=== PATIENT | female | born 1970 | race African-American/Black ===

== ENCOUNTER 2017-07-12 04:39 | Emergency (ER) | payer MEDICAID ==
[~2017-07-12] VITALS: Ht 162.6 cm; Wt 72.6 kg
[~2017-07-12 04:39] MED LIST: ALPR1TAB2 PO; CODE1CAP35 PO; HYDR-3976 PO; IBUP-1481 PO
--- NOTE | 2017-07-12 04:50 | NUR ---
46 YO FEMALE BB RA FROM HOME C/O ANXIETY ATTACK. PT AMBULATED TO ER BED WITH STEADY GAIT, SKIN WARM AND DRY, RR EVEN AN DUNLABORED. PT GOWNED, PALCED ON PUBLIC HEALTH OFFICER. WILL CONTINUE TO MONITO R
[2017-07-12 05:31] LABS: BASOPHILS % (AUTO) 0.7 % (0.0-2.0); EOSINOPHILS # (AUTO) 0.1 /CMM (0.0-0.7); EOSINOPHILS % (AUTO) 1.1 % (0.0-6.0); HEMATOCRIT 39 % (33-45); HEMOGLOBIN 12.9 g/dL (11.5-14.8); LYMPHOCYTES % (AUTO) 32.2 % (20.0-44.0); MEAN CORPUSCULAR HEMOGLOBIN 28 PG (26.0-33.0); MEAN CORPUSCULAR HGB CONC 33 g/dl (31.0-36.0); MEAN CORPUSCULAR VOLUME 84 fL (82-100); MONOCYTES # (AUTO) 0.6 /CMM (0.1-1.30); MONOCYTES % (AUTO) 9.6 % (2.0-12.0); NEUTROPHILS # (AUTO) 3.6 /CMM (1.8-8.9); NEUTROPHILS % (AUTO) 56.4 % (43.0-81.0); PLATELET COUNT (AUTO) 435 /CMM (150-450); RDW COEFFICIENT OF VARIATION 14.2 (11.5-15.0); RED BLOOD CELL COUNT(AUTO) 4.68 MIL/uL (4.0-5.2); WHITE BLOOD COUNT (AUTO) 6.3 K/uL (4.3-11.0)
[2017-07-12 05:42] LABS: CALCIUM, SERUM 9.7 mg/dL (8.5-10.1); CARBON DIOXIDE 28 mmol/L (21-32); CHLORIDE 98 mmol/L (98-107); GLUCOSE 127 mg/dL (74-106); SODIUM SERUM 136 mmol/L (136-145); UREA NITROGEN, BLOOD 5 mg/dL (7-18)
[2017-07-12 05:49] LABS: ALANINE AMINOTRANSFERASE 22 U/L (12-78); ALBUMIN 4.2 g/dL (3.4-5.0); ALCOHOL, BLOOD < 3 mg/dL (0-0); ALKALINE PHOSPHATASE 61 U/L (46-116); ASPARTATE AMINOTRANSFERASE 28 U/L (15-37); BILIRUBIN,TOTAL 0.4 mg/dL (0.2-1.0); TOTAL PROTEIN, SERUM 8.2 g/dL (6.4-8.2)
[2017-07-12 05:59] LABS: THYROID STIMULATING HORMONE 1.094 uIU/mL (0.358-3.74)
[2017-07-12 07:20] VITALS: BP 140/76
--- NOTE | 2017-07-12 07:21 | NUR ---
Patient discharged to home in stable condition. Written and verbal after care instructions given. Patient verbalizes understanding of instruction.IV removed. Catheter intact and site benign. Pressure and 4x4 applied to site. No bleeding noted. PT ambulatory with a steady gait VITAL SIGNS WITHIN NORMAL LIMITS.
== END 2017-07-12 07:21 | disposition home or self-care (01) ==
LOC: ER 04:41
DX: F41.9 Anxiety disorder, unspecified (principal); R82.99 Other abnormal findings in urine; F17.200 Nicotine dependence, unspecified, uncomplicated; I10 Essential (primary) hypertension; G43.909 Migraine, unspecified, not intractable, without status migrainosus; Z88.6 Allergy status to analgesic agent
CPT/HCPCS: 36415; 71010; 80048; 80076; 80305; 84443; 84484; 84703; 85025; 93005; 96361; 96374; 96375; 99285; A4606; G0480; J2060; J2270 ×2; J2405; J7030; Z7610

== ENCOUNTER 2018-01-04 11:27 | Emergency (ER) | payer MEDICAID, OTHER ==
[~2018-01-04] VITALS: Ht 162.6 cm; Wt 74.8 kg
[~2018-01-04 11:27] MED LIST changes: -IBUP-1481 PO; +IBUP-1953 PO
[2018-01-04 11:37] VITALS: BP 135/77
[2018-01-04] MEDS ORDERED: KETOROLAC TROMETHAMINE 15 MG/ML VIAL ONE (12:51)
[2018-01-04] MEDS ORDERED: KETOROLAC TROMETHAMINE INJ 30 MG/ML VIAL IM ONE (13:00)
== END 2018-01-04 13:00 | disposition home or self-care (01) ==
LOC: ER 11:28
DX: B34.9 Viral infection, unspecified (principal); F41.9 Anxiety disorder, unspecified; G43.909 Migraine, unspecified, not intractable, without status migrainosus; I10 Essential (primary) hypertension; F10.10 Alcohol abuse, uncomplicated; F17.200 Nicotine dependence, unspecified, uncomplicated; Z88.5 Allergy status to narcotic agent
CPT/HCPCS: 71045-TC; 84703-TC; A4606; J1885; Z7610

== ENCOUNTER 2018-01-10 15:07 | Emergency (ER) | payer MEDICAID, OTHER ==
[~2018-01-10] VITALS: Ht 162.6 cm; Wt 74.8 kg
--- NOTE | 2018-01-10 15:07 | NUR ---
COUNG AND CONGESTION, COLD, BODYACHES, HEADACHE > 1 WK. NAD NOTED. PT AAO X4, AMB WITH STEADY GAIT. RR EVEN AND UNLABORED. PENDING MD CARLOS.
[2018-01-10] MEDS ORDERED: IBUPROFEN 600 MG TABLET PO ONE ×2 (16:00→16:02)
[2018-01-10] MEDS ORDERED: ONDANSETRON 4 MG TAB.RAPDIS SL ONE (16:00)
[2018-01-10] MEDS ORDERED: oxyCODONE/APAP (5/325 MG) 1 UDTAB TABLET PO ONE (16:00)
[2018-01-10] MEDS ORDERED: ALBUTEROL FS 2.5 MG/3 ML VIAL.NEB NEB ONE (16:00)
[2018-01-10] MEDS ORDERED: predniSONE 20 MG TABLET PO ONE (16:00)
--- NOTE | 2018-01-10 16:01 | NUR ---
CALLED RT FOR A BREATHING TREATMENT
[2018-01-10] MEDS ORDERED: oxyCODONE/APAP (5/325 MG) 1 UDTAB TABLET ONE (16:02)
[2018-01-10] MEDS ORDERED: ONDANSETRON 4 MG TAB.RAPDIS ONE (16:02)
[2018-01-10] MEDS ORDERED: ALBUTEROL FS 2.5 MG/3 ML VIAL.NEB ONE (16:04)
[2018-01-10] MEDS ORDERED: predniSONE 20 MG TABLET ONE (16:11)
[2018-01-10 16:54] LABS: APPEARANCE,URINE Clear (CLEAR); BILIRUBIN,URINE Negative (NEGATIVE); BLOOD, URINE Negative Ery/uL (NEGATIVE); COLOR,URINE Yellow (YELLOW); KETONES,URINE Negative (NEGATIVE); LEUKOCYTE ESTERASE ,URINE Negative (NEGATIVE); NITRITE, URINE Negative (NEGATIVE); PROTEIN,URINE Negative (NEGATIVE); UGLUCOSE Negative (NEGATIVE); UROBILINOGEN,URINE 0.2 EU/dL (0.2)
[2018-01-10 17:11] VITALS: BP 125/79
[2018-01-10] MEDS ORDERED: KETOROLAC TROMETHAMINE INJ 30 MG/ML VIAL ONE (17:27)
[2018-01-10] MEDS ORDERED: INSULIN REGULAR, HUMAN 100 UNIT/ML 10 ML VIAL SQ ONE (17:30)
[2018-01-10] MEDS ORDERED: KETOROLAC TROMETHAMINE INJ 30 MG/ML VIAL IM ONE (17:30)
--- NOTE | 2018-01-10 17:37 | NUR ---
Patient discharged to home in stable condition. Written and verbal after care instructions given. Patient verbalizes understanding of instruction. ambulatory with a steady gait. nad noted. pt aao x4, amb with steady gait. prescriptions given . no fruther complaints.
== END 2018-01-10 17:36 | disposition home or self-care (01) ==
LOC: ER 15:14
DX: J03.90 Acute tonsillitis, unspecified (principal); J40 Bronchitis, not specified as acute or chronic; R51 Headache; F41.9 Anxiety disorder, unspecified; I10 Essential (primary) hypertension; F10.10 Alcohol abuse, uncomplicated; F17.200 Nicotine dependence, unspecified, uncomplicated; F12.10 Cannabis abuse, uncomplicated
CPT/HCPCS: 71045; 81001; 84703; 96372; 99285; 99406; A4606; J1885; J7512; Q0162; Z7610; 81000-TC

== ENCOUNTER 2018-05-22 10:00 | Emergency (ER) | payer MEDICAID ==
[~2018-05-22] VITALS: Ht 162.6 cm; Wt 77.1 kg
--- NOTE | 2018-05-22 10:16 | NUR ---
DR MONSON AT BEDSIDE FOR EVAL.
--- NOTE | 2018-05-22 10:26 | NUR ---
RADIOLOGY AT BEDSIDE FOR LUMBAR SPINE XRAY.
[2018-05-22] MEDS ORDERED: ONDANSETRON 4 MG TAB.RAPDIS SL ONE (10:30)
[2018-05-22] MEDS ORDERED: IBUPROFEN 600 MG TABLET PO ONE (10:31)
[2018-05-22] MEDS ORDERED: ONDANSETRON 4 MG TAB.RAPDIS ONE (10:31)
[2018-05-22] MEDS: IBUPROFEN 600 MG TABLET PO ONE ×2 (10:32→10:35)
--- NOTE | 2018-05-22 10:34 | NUR ---
PT TO RADIOLOGY FOR HEAD CT SCAN VIA [facility].
--- NOTE | 2018-05-22 11:09 | NUR ---
Patient discharged to home in stable condition. Written and verbal after care instructions given. Patient verbalizes understanding of instruction.
[2018-05-22 11:10] VITALS: BP 125/75
== END 2018-05-22 11:12 | disposition home or self-care (01) ==
LOC: ER 10:01
DX: S23.3XXA Sprain of ligaments of thoracic spine, initial encounter (principal); S33.5XXA Sprain of ligaments of lumbar spine, initial encounter; S09.8XXA Other specified injuries of head, initial encounter; I10 Essential (primary) hypertension; F41.9 Anxiety disorder, unspecified; G43.909 Migraine, unspecified, not intractable, without status migrainosus; Z88.6 Allergy status to analgesic agent; W01.198A Fall on same level from slipping, tripping and stumbling with subsequent striking against other object, initial encounter; Y93.89 Activity, other specified; Y92.89 Other specified places as the place of occurrence of the external cause; Y99.8 Other external cause status
CPT/HCPCS: 70450; 72074; 72110; 99284; A4606; Q0162; Z7610

== ENCOUNTER 2018-07-12 09:59 | Emergency (ER) | payer MEDICAID ==
[~2018-07-12] VITALS: Ht 162.6 cm; Wt 87.5 kg
[2018-07-12 10:05] VITALS: BP 122/70
== END 2018-07-12 10:27 | disposition home or self-care (01) ==
LOC: ER 10:01
DX: T88.1XXA Other complications following immunization, not elsewhere classified, initial encounter (principal); I10 Essential (primary) hypertension; F41.9 Anxiety disorder, unspecified; G43.909 Migraine, unspecified, not intractable, without status migrainosus; F41.0 Panic disorder [episodic paroxysmal anxiety]; F10.10 Alcohol abuse, uncomplicated; Y90.9 Presence of alcohol in blood, level not specified; Z88.5 Allergy status to narcotic agent
CPT/HCPCS: 99281; A4606; Z7610; Z7502

== ENCOUNTER 2018-09-21 22:15 | Emergency (ER) | payer MEDICAID ==
[~2018-09-21] VITALS: Ht 162.6 cm; Wt 87.5 kg
[2018-09-21 22:27] VITALS: BP 132/85
== END 2018-09-21 23:30 | disposition home or self-care (01) ==
LOC: ER 22:21
DX: Z47.89 Encounter for other orthopedic aftercare (principal); I10 Essential (primary) hypertension; F41.9 Anxiety disorder, unspecified; G43.909 Migraine, unspecified, not intractable, without status migrainosus; F41.0 Panic disorder [episodic paroxysmal anxiety]; F10.10 Alcohol abuse, uncomplicated; Y90.9 Presence of alcohol in blood, level not specified
CPT/HCPCS: A4606; Z7610

== ENCOUNTER 2019-01-30 11:33 | Emergency (ER) | payer MEDICAID ==
[~2019-01-30] VITALS: Ht 162.6 cm; Wt 77.1 kg
--- NOTE | 2019-01-30 11:38 | NUR ---
PT BIB SELF C/O L ANKLE PAIN AND SWELLING X 3 DAYS. ANKLE SX (09/30/18), PT IS AAOX4, NOT IN RESPIRATORY DISTRESS, KEPT RESTED AND COMFORTABLE.
--- NOTE | 2019-01-30 11:48 | NUR ---
SEEN AND EXAMINED BY LANA RABAGO NP.
--- NOTE | 2019-01-30 11:50 | NUR ---
URINE SPECIMEN COLLECTED AND SENT TO LAB.
[2019-01-30] MEDS ORDERED: HYDROCODONE/APAP 5/325MG 1 EACH TABLET ONE (11:58)
[2019-01-30] MEDS ORDERED: ONDANSETRON 4 MG TAB.RAPDIS ONE (11:59)
[2019-01-30] MEDS ORDERED: HYDROCODONE/APAP 10/325MG 1 EA TABLET PO ONE (12:00)
[2019-01-30] MEDS ORDERED: KETOROLAC TROMETHAMINE INJ 30 MG/ML VIAL IV ONE (12:00)
[2019-01-30] MEDS ORDERED: ONDANSETRON 4 MG TAB.RAPDIS SL ONE (12:00)
--- NOTE | 2019-01-30 12:00 | NUR ---
ER PHLEB AT BEDSIDE FOR BLOOD DRAW.
[2019-01-30 12:07] LABS: BASOPHILS % (AUTO) 0.7 % (0.0-2.0); EOSINOPHILS % (AUTO) 1.7 % (0.0-6.0); HEMATOCRIT 36 % (33-45); HEMOGLOBIN 11.8 g/dL (11.5-14.8); LYMPHOCYTES # (AUTO) 2.4 /CMM (0.8-4.8); LYMPHOCYTES % (AUTO) 42.1 % (20.0-44.0); MEAN CORPUSCULAR HGB CONC 33 g/dl (31.0-36.0); MEAN CORPUSCULAR VOLUME 83 fL (82-100); MONOCYTES # (AUTO) 0.6 /CMM (0.1-1.30); MONOCYTES % (AUTO) 10.8 % (2.0-12.0); NEUTROPHILS # (AUTO) 2.5 /CMM (1.8-8.9); NEUTROPHILS % (AUTO) 44.7 % (43.0-81.0); PLATELET COUNT (AUTO) 316 /CMM (150-450); RED BLOOD CELL COUNT(AUTO) 4.36 MIL/uL (4.0-5.2); WHITE BLOOD COUNT (AUTO) 5.6 K/uL (4.3-11.0)
[2019-01-30 12:13] LABS: CALCIUM, SERUM 8.8 mg/dL (8.5-10.1); CREATININE 0.7 mg/dL (0.6-1.3); POTASSIUM 3.4 mmol/L (3.5-5.1)
--- NOTE | 2019-01-30 12:16 | NUR ---
TECH AT BEDSIDE FOR US.
[2019-01-30] MEDS ORDERED: HYDROCODONE/APAP 10/325MG 1 EA TABLET ONE (12:18)
[2019-01-30] MEDS ORDERED: KETOROLAC TROMETHAMINE INJ 30 MG/ML VIAL ONE (12:19)
--- NOTE | 2019-01-30 12:59 | NUR ---
Patient discharged to home in stable condition. Written and verbal after care instructions given. Patient verbalizes understanding of instruction.
[2019-01-30 13:01] VITALS: BP 141/87
== END 2019-01-30 13:02 | disposition home or self-care (01) ==
LOC: ER 11:37
DX: M25.572 Pain in left ankle and joints of left foot (principal); I10 Essential (primary) hypertension; F41.9 Anxiety disorder, unspecified; G43.909 Migraine, unspecified, not intractable, without status migrainosus; Z96.662 Presence of left artificial ankle joint; Z98.890 Other specified postprocedural states; Z88.6 Allergy status to analgesic agent; Z79.899 Other long term (current) drug therapy
CPT/HCPCS: 36415; 73610; 80048; 84703; 85025; 85610; 93971; 96374; 99284; J1885; Q0162

== ENCOUNTER 2019-06-21 20:02 | Emergency (ER) | payer MEDICAID ==
[~2019-06-21] VITALS: Ht 162.6 cm; Wt 85.3 kg
[2019-06-21] MEDS ORDERED: IPRATROPIUM NEB FS 0.5 MG/2.5 ML AMPUL.NEB ONE (20:58)
[2019-06-21] MEDS ORDERED: ALBUTEROL FS 2.5 MG/3 ML VIAL.NEB ONE ×2 (20:58→22:25)
[2019-06-21] MEDS ORDERED: IPRATROPIUM NEB FS 0.5 MG/2.5 ML AMPUL.NEB NEB ONE (21:00)
[2019-06-21] MEDS ORDERED: ACETAMINOPHEN 325 MG TABLET PO ONE (21:00)
[2019-06-21] MEDS ORDERED: ALBUTEROL FS 2.5 MG/3 ML VIAL.NEB NEB ONE ×2 (21:00→22:00)
[2019-06-21] MEDS ORDERED: IV NS 0.9% 1,000 ML BAG IV ONE (21:00)
[2019-06-21] MEDS ORDERED: methylPREDNISolone SOD SUCC 125 MG/2ML VIAL IV ONE (21:00)
[2019-06-21] MEDS ORDERED: ONDANSETRON HCL/PF 4 MG/2 ML VIAL IVP ONE (21:00)
[2019-06-21] MEDS ORDERED: ONDANSETRON HCL/PF 4 MG/2 ML VIAL ONE (21:03)
[2019-06-21] MEDS ORDERED: ACETAMINOPHEN ES 500 MG TABLET ONE (21:03)
[2019-06-21] MEDS ORDERED: methylPREDNISolone SOD SUCC 125 MG/2ML VIAL ONE (21:03)
--- NOTE | 2019-06-21 21:33 | NUR ---
TERE FROM HOME. TO ER BED 10. AAOX4. SOB AND COUGHING. AMBULATORY. C/O FLU SYMPTOMS X 4 DAYS. PT REPORTS HEADACHE AND DIZZYNESS. COUGING, NOTED NON PRODUCTIVE. DIMINISHED LUNG SOUND. NAUSEA. PT REPORT NUMBNESS ON HANDS, PER PT HER POTASSIUM IS LOW AND TAKING WATER PILLS. WAS AT BEDSIDE FOR EVAL. ORDERS RECEIVED NOTED AND CARRIED OUT. IV ELEANOR OBTAINED ON L HAND 22G.
--- NOTE | 2019-06-21 21:41 | NUR ---
URINE COLLECTED AND SENT TO LAB
[2019-06-21 21:48] LABS: BASOPHILS # (AUTO) 0.1 /CMM (0.0-0.2); BASOPHILS % (AUTO) 0.9 % (0.0-2.0); EOSINOPHILS % (AUTO) 0.6 % (0.0-6.0); HEMATOCRIT 35 % (33-45); HEMOGLOBIN 11.7 g/dL (11.5-14.8); LYMPHOCYTES # (AUTO) 2.2 /CMM (0.8-4.8); LYMPHOCYTES % (AUTO) 21.3 % (20.0-44.0); MEAN CORPUSCULAR HGB CONC 33 g/dl (31.0-36.0); MEAN CORPUSCULAR VOLUME 83 fL (82-100); MONOCYTES # (AUTO) 1.1 /CMM (0.1-1.30); NEUTROPHILS # (AUTO) 6.7 /CMM (1.8-8.9); NEUTROPHILS % (AUTO) 66.2 % (43.0-81.0); PLATELET COUNT (AUTO) 281 /CMM (150-450); WHITE BLOOD COUNT (AUTO) 10.1 K/uL (4.3-11.0)
[2019-06-21] MEDS ORDERED: CEFTRIAXONE 1GM BAG (ER ONLY) 1 GM/50 ML PIGGYBACK IV ONE (22:00)
[2019-06-21 22:03] LABS: ALBUMIN 3.4 g/dL (3.4-5.0); BILIRUBIN,DIRECT 0.1 mg/dL (0.0-0.2); BILIRUBIN,TOTAL 0.2 mg/dL (0.2-1.0); CREATININE 1.2 mg/dL (0.6-1.3); TOTAL PROTEIN, SERUM 7.5 g/dL (6.4-8.2)
[2019-06-21 22:05] LABS: POTASSIUM 2.5 mmol/L (3.5-5.1)
--- NOTE | 2019-06-21 22:05 | NUR ---
PT POTASSIUM 2.5 CRITICAL LAB. ER AWARE
[2019-06-21] MEDS ORDERED: CEFTRIAXONE 1GM BAG (ER ONLY) 50 ML IV ONE (22:07)
[2019-06-21] MEDS ORDERED: POTASSIUM CHLORIDE 20 MEQ TAB.PRT.SR PO ONE ×2 (22:22→22:30)
--- NOTE | 2019-06-21 23:09 | NUR ---
Patient discharged to home in stable condition. Written and verbal after care instructions given. Patient verbalizes understanding of instruction.IV removed. Catheter intact and site benign. Pressure and 4x4 applied to site. No bleeding noted. Pt ambulatory with a steady gait
[2019-06-21 23:10] VITALS: BP 125/78
== END 2019-06-21 23:11 | disposition home or self-care (01) ==
LOC: ER 20:04
DX: J18.1 Lobar pneumonia, unspecified organism (principal); J98.01 Acute bronchospasm; E66.9 Obesity, unspecified; E87.6 Hypokalemia; R06.00 Dyspnea, unspecified; F41.9 Anxiety disorder, unspecified; R11.10 Vomiting, unspecified; R42 Dizziness and giddiness; I10 Essential (primary) hypertension; G43.909 Migraine, unspecified, not intractable, without status migrainosus; F10.10 Alcohol abuse, uncomplicated; F17.200 Nicotine dependence, unspecified, uncomplicated; Y90.9 Presence of alcohol in blood, level not specified; Z68.34 Body mass index [BMI] 34.0-34.9, adult; Z98.890 Other specified postprocedural states; Z88.5 Allergy status to narcotic agent
CPT/HCPCS: 36415; 71045; 80048; 80076; 85025; 93005; 94640 ×3; 96361; 96365; 96375; 99285; J0696; J2405; J2930; J7030

== ENCOUNTER 2021-05-05 14:40 | Emergency (ER) | payer MEDICAID ==
[~2021-05-05] VITALS: Ht 165.1 cm; Wt 94.3 kg
--- NOTE | 2021-05-05 15:13 | NUR ---
TO ER BED 1, C/O LOWER EXTREMITY INJURY, SALINE LOCK ESTABLISHED, BLOOD DRAWN, AT BEDSIDE
[2021-05-05 15:24] LABS: BASOPHILS % (AUTO) 0.6 % (0.0-2.0); EOSINOPHILS % (AUTO) 1.3 % (0.0-6.0); HEMATOCRIT 38 % (33-45); HEMOGLOBIN 12.3 g/dL (11.5-14.8); LYMPHOCYTES # (AUTO) 1.8 K/uL (0.8-4.8); LYMPHOCYTES % (AUTO) 22.1 % (20.0-44.0); MEAN CORPUSCULAR HGB CONC 33 g/dl (31.0-36.0); MEAN CORPUSCULAR VOLUME 82 fL (82-100); MONOCYTES # (AUTO) 0.5 K/uL (0.1-1.30); NEUTROPHILS # (AUTO) 5.7 K/uL (1.8-8.9); PLATELET COUNT (AUTO) 389 K/uL (150-450); RED BLOOD CELL COUNT(AUTO) 4.61 MIL/uL (4.0-5.2); WHITE BLOOD COUNT (AUTO) 8.2 K/uL (4.3-11.0)
--- NOTE | 2021-05-05 15:29 | NUR ---
XRAY AT BEDSIDE
[2021-05-05 15:34] LABS: CALCIUM, SERUM 9.4 mg/dL (8.5-10.1); CREATININE 0.8 mg/dL (0.6-1.3); POTASSIUM 3.8 mmol/L (3.5-5.1)
[2021-05-05] MEDS ORDERED: LOSA1TAB39 PO (16:07)
--- NOTE | 2021-05-05 17:00 | NUR ---
FAMYRIAM BEDOYA TO FRIEDA KIRKPATRICK @ [facility] [phone] TEL [phone]
[2021-05-05] MEDS ORDERED: ONDANSETRON HCL/PF - ER 4 MG/2 ML VIAL IV ONE (17:30)
[2021-05-05] MEDS ORDERED: IV NS 0.9% 1,000 ML IV ONE (17:30)
[2021-05-05] MEDS ORDERED: MORPHINE SULFATE INJ 2 MG/ML DISP.SYRIN IV ONE ×2 (17:30→19:00)
[2021-05-05] MEDS ORDERED: ONDANSETRON HCL/PF 4 MG/2 ML VIAL ONE (17:38)
[2021-05-05] MEDS ORDERED: MORPHINE SULFATE INJ 2 MG/ML DISP.SYRIN ONE ×2 (17:39→18:43)
--- NOTE | 2021-05-05 17:40 | NUR ---
DR. RIVERA SPEAKING WITH DR. HANCOCK.
--- NOTE | 2021-05-05 18:21 | NUR ---
ASKED IF DR HANCOCK CAN TALK TO HER ABOUT WHAT DR RIVERA SAID TO HIM, SHE SHOOK HER HEAD AND INSTEAD I TOLD HER THAT DR RIVERA TOLD DR HANCOCK THAT SHE CAN BE TRANSFERRED TO THE [facility] ASSIGNED TO HER AND THAT SHE IS STABLE FOR TRANSFER PER DR RIVERA. PATIENT AGREED
--- NOTE | 2021-05-05 18:23 | NUR ---
CALLED FRIEDA KIRKPATRICK [phone] LEFT [facility] TO CALL US BACK.
--- NOTE | 2021-05-05 18:27 | NUR ---
FRIEDA CALLED BACK WITH INFO: PT ACCEPTED TO [facility] ROOM 1000-A PLEASE CALL [phone] TO GIVE REPORT. [facility] WITH ETA OF 1900
[2021-05-05 18:55] VITALS: BP 116/62
--- NOTE | 2021-05-05 19:16 | NUR ---
GAVE REPORT TO TREASURE [facility]
== END 2021-05-05 19:29 | disposition short-term general hospital (02) ==
LOC: ER 14:44
DX: S82.841A Displaced bimalleolar fracture of right lower leg, initial encounter for closed fracture (principal); W18.30XA Fall on same level, unspecified, initial encounter; Y93.21 Activity, ice skating; Y92.89 Other specified places as the place of occurrence of the external cause; Z20.822 Contact with and (suspected) exposure to COVID-19; I10 Essential (primary) hypertension; F41.9 Anxiety disorder, unspecified; Z88.6 Allergy status to analgesic agent; Z79.899 Other long term (current) drug therapy
CPT/HCPCS: 36415; 71045; 73610; 80048; 85025; 85730; 87081; 87426; 93005; 93971; 96361; 96374; 96375; 96376; 99285; C9803; J2270 ×2; J2405 ×2

== ENCOUNTER 2022-10-25 08:40 | Emergency (ER) | payer MEDICAID ==
[~2022-10-25] VITALS: Ht 162.6 cm; Wt 82.6 kg
[~2022-10-25 08:40] MED LIST changes: -CODE1CAP35 PO; -HYDR-3976 PO; -IBUP-1953 PO; +LOSA1TAB39 PO
--- NOTE | 2022-10-25 08:50 | NUR ---
PT WALKED INTO ER C/O RIGHT KNEE PAIN S/P SLIP AND FALL YESTERDAY. PT DENIES HITTING HEAD OR LOC. NO OBVIOUS DEFORMITY NOTED. GOOD CMS, LIMITED RANGE OF MOTION. PT STATES 5/10 PAIN WHEN WALKING. PLACED IN BED. AWAITING MD ORDERS
--- NOTE | 2022-10-25 08:51 | NUR ---
/PA AT BEDSIDE FOR EVAL
--- NOTE | 2022-10-25 09:15 | NUR ---
[employer] OFFICER AT BEDSIDE FOR XRAY
[2022-10-25] MEDS ORDERED: HYDR-4275 PO (09:27)
--- NOTE | 2022-10-25 09:31 | NUR ---
TECH AT BEDSIDE FOR ANKLE BOOT APPLICATION
[2022-10-25] MEDS ORDERED: BENZOIN COMPOUND TINCT 60 ML BOTTLE ONE (09:40)
--- NOTE | 2022-10-25 10:12 | NUR ---
Patient discharged to home in stable condition. Written and verbal after care instructions given. Patient verbalizes understanding of instruction.
[2022-10-25 10:13] VITALS: BP 124/80
== END 2022-10-25 10:13 | disposition home or self-care (01) ==
LOC: ER 08:47
DX: S61.012A Laceration without foreign body of left thumb without damage to nail, initial encounter (principal); S93.401A Sprain of unspecified ligament of right ankle, initial encounter; I10 Essential (primary) hypertension; F41.9 Anxiety disorder, unspecified; F17.200 Nicotine dependence, unspecified, uncomplicated; Z79.899 Other long term (current) drug therapy; Z98.890 Other specified postprocedural states; Z88.8 Allergy status to other drugs, medicaments and biological substances; W26.0XXA Contact with knife, initial encounter; Y93.G3 Activity, cooking and baking; Y92.89 Other specified places as the place of occurrence of the external cause; Y99.8 Other external cause status
CPT/HCPCS: 73610-TC

== ENCOUNTER → 2023-01-19 | Emergency (ER) | payer BC, OTHER ==
[~2023-01-19] VITALS: Ht 162.6 cm; Wt 83.9 kg
[~2023-01-19] MED LIST changes: +ACETAMINOPHEN 325 MG TABLET ONE; +HYDR-4275 PO; +KETOROLAC TROMETHAMINE 15 MG/ML VIAL ONE; +LORAZEPAM 1 MG TABLET ONE
[2023-01-19] MEDS: LORAZEPAM 1 MG TABLET PO ONE (08:01)
[2023-01-19] MEDS: ACETAMINOPHEN 325 MG TABLET PO ONE (08:30)
[2023-01-19] MEDS: KETOROLAC TROMETHAMINE INJ 30 MG/ML VIAL IM ONE (08:30)
--- NOTE | 2023-01-19 08:36 | NUR ---
medicated as ordered. tolerated well.
[2023-01-19 08:47] VITALS: BP 148/88
--- NOTE | 2023-01-19 08:47 | NUR ---
Patient discharged to home in stable condition. Written and verbal after care instructions given. Patient verbalizes understanding of instruction.
== END | disposition home or self-care (01) ==
LOC: ER 06:45
DX: F41.9 Anxiety disorder, unspecified (principal); F43.81 Prolonged grief disorder; I10 Essential (primary) hypertension; G43.909 Migraine, unspecified, not intractable, without status migrainosus; F17.200 Nicotine dependence, unspecified, uncomplicated; Z88.8 Allergy status to other drugs, medicaments and biological substances
CPT/HCPCS: 99283; 96372; J1885

== ENCOUNTER 2023-03-08 12:38 | Emergency (ER) | payer BC, OTHER ==
[~2023-03-08] VITALS: Ht 162.6 cm; Wt 83.9 kg
[~2023-03-08 12:38] MED LIST changes: -ACETAMINOPHEN 325 MG TABLET ONE; -KETOROLAC TROMETHAMINE 15 MG/ML VIAL ONE; -LORAZEPAM 1 MG TABLET ONE
[2023-03-08 12:43] VITALS: BP 139/118
--- NOTE | 2023-03-08 12:43 | NUR ---
BIBS C/O HAVING PANIC ATTACHED, HAS HX OF ANEXIETY, EXPERIENCING HEADACHES
--- NOTE | 2023-03-08 12:43 | NUR ---
BIBS C/O HAVING PANICK ATTACHED, HAS HX OF ANEXIETY, EXPERIENCING HEADACHES
[2023-03-08] MEDS ORDERED: LORAZEPAM 1 MG TABLET PO ONE (14:00)
[2023-03-08] MEDS ORDERED: LORAZEPAM 1 MG TABLET ONE (14:04)
--- NOTE | 2023-03-08 14:33 | NUR ---
Patient discharged to home in stable condition. Written and verbal after care instructions given. Patient verbalizes understanding of instruction.
== END 2023-03-08 14:33 | disposition home or self-care (01) ==
LOC: ER 12:39
DX: F41.9 Anxiety disorder, unspecified (principal); G43.909 Migraine, unspecified, not intractable, without status migrainosus; I10 Essential (primary) hypertension; F17.200 Nicotine dependence, unspecified, uncomplicated; Z79.899 Other long term (current) drug therapy; Z98.890 Other specified postprocedural states; Z91.040 Latex allergy status; Z88.1 Allergy status to other antibiotic agents; Z88.5 Allergy status to narcotic agent

== ENCOUNTER → 2023-04-14 | Emergency (ER) | payer BC, OTHER ==
--- NOTE | 2023-04-14 13:07 | NUR ---
Pt called. NOT answering Sound Recordist Rosaline states "there she is in her car" Pt kunal
== END | disposition left against medical advice (07) ==
LOC: ER 18:49
DX: Z53.21 Procedure and treatment not carried out due to patient leaving prior to being seen by health care provider (principal)

== ENCOUNTER 2023-05-08 12:21 | Emergency (ER) | payer BC, OTHER ==
[~2023-05-08] VITALS: Ht 162.6 cm; Wt 81.6 kg
[2023-05-08 12:24] VITALS: BP 134/86; TEMP 98.2
--- NOTE | 2023-05-08 12:24 | NUR ---
BIBS FOR C/O RASH ON L SIDE OF THE NECK X3 WEEKS, WANTING RX. VITALS ARE WITHIN NORMAL LIMITS.
[2023-05-08] MEDS ORDERED: LORAZEPAM 1 MG TABLET ONE (12:47)
[2023-05-08] MEDS ORDERED: LORAZEPAM 1 MG TABLET PO ONE (13:00)
--- NOTE | 2023-05-08 13:17 | NUR ---
Patient discharged to home in stable condition. Written and verbal after care instructions given. Patient verbalizes understanding of instruction.
[2023-05-08 13:18] VITALS: O2SAT 97
== END 2023-05-08 13:18 | disposition home or self-care (01) ==
LOC: ER 12:28
DX: F41.9 Anxiety disorder, unspecified (principal); I10 Essential (primary) hypertension; G43.909 Migraine, unspecified, not intractable, without status migrainosus; Z88.8 Allergy status to other drugs, medicaments and biological substances

== ENCOUNTER 2023-06-29 06:00 | Emergency (ER) | payer BC, OTHER ==
[~2023-06-29] VITALS: Ht 162.6 cm; Wt 81.6 kg
[2023-06-29 06:19] VITALS: BP 118/77; TEMP 98.6; O2SAT 98
[2023-06-29] MEDS ORDERED: DIPH28.33 TP (06:53)
[2023-06-29] MEDS ORDERED: DIPH-530 PO (06:53)
[2023-06-29] MEDS ORDERED: PRED50TA PO (06:53)
[2023-06-29] MEDS ORDERED: diphenhydrAMINE HCL 25 MG CAPSULE ONE (07:13)
[2023-06-29] MEDS ORDERED: diphenhydrAMINE HCL ELIX 25 MG/10 ML UDC PO ONE (07:30)
== END 2023-06-29 07:19 | disposition home or self-care (01) ==
LOC: ER 06:00
DX: S80.862A Insect bite (nonvenomous), left lower leg, initial encounter (principal); S80.861A Insect bite (nonvenomous), right lower leg, initial encounter; S40.862A Insect bite (nonvenomous) of left upper arm, initial encounter; S40.861A Insect bite (nonvenomous) of right upper arm, initial encounter; G43.909 Migraine, unspecified, not intractable, without status migrainosus; I10 Essential (primary) hypertension; F41.9 Anxiety disorder, unspecified; Z88.6 Allergy status to analgesic agent; Z88.8 Allergy status to other drugs, medicaments and biological substances; F17.200 Nicotine dependence, unspecified, uncomplicated; W57.XXXA Bitten or stung by nonvenomous insect and other nonvenomous arthropods, initial encounter; Y93.89 Activity, other specified; Y92.89 Other specified places as the place of occurrence of the external cause; Y99.8 Other external cause status
CPT/HCPCS: 99283; Q0163

== ENCOUNTER 2023-07-06 10:38 | Emergency (ER) | payer BC, MEDICAID ==
[~2023-07-06] VITALS: Ht 162.6 cm; Wt 535.2 kg
[~2023-07-06 10:38] MED LIST changes: +DIPH-530 PO; +DIPH28.33 TP; +PRED50TA PO
[2023-07-06 10:53] VITALS: BP 131/95; TEMP 98; O2SAT 98
[2023-07-06 11:54] LABS: BASOPHILS # (AUTO) 0.1 K/uL (0.0-0.2); BASOPHILS % (AUTO) 0.6 % (0.0-2.0); EOSINOPHILS # (AUTO) 0.2 K/uL (0.0-0.7); HEMATOCRIT 38 % (33-45); HEMOGLOBIN 12.5 g/dL (11.5-14.8); LYMPHOCYTES # (AUTO) 3.2 K/uL (0.8-4.8); LYMPHOCYTES % (AUTO) 40.2 % (20.0-44.0); MEAN CORPUSCULAR HEMOGLOBIN 28 PG (26.0-33.0); MEAN CORPUSCULAR HGB CONC 33 g/dl (31.0-36.0); MEAN CORPUSCULAR VOLUME 84 fL (82-100); MONOCYTES # (AUTO) 0.8 K/uL (0.1-1.30); MONOCYTES % (AUTO) 9.6 % (2.0-12.0); NEUTROPHILS # (AUTO) 3.7 K/uL (1.8-8.9); NEUTROPHILS % (AUTO) 46.6 % (43.0-81.0); PLATELET COUNT (AUTO) 389 K/uL (150-450); RED BLOOD CELL COUNT(AUTO) 4.49 MIL/uL (4.0-5.2); RED CELL DISTRIBUTION WIDTH 15.4 % (11.5-15.0)
[2023-07-06 11:59] LABS: CALCIUM, SERUM 8.7 mg/dL (8.5-10.1); CREATININE 0.8 mg/dL (0.6-1.3); POTASSIUM 3.1 mmol/L (3.5-5.1)
[2023-07-06] MEDS: ACETAMINOPHEN 325 MG TABLET PO ONE (12:10)
[2023-07-06] MEDS ORDERED: diphenhydrAMINE HCL 50 MG/ML VIAL ONE (12:10)
[2023-07-06] MEDS: diphenhydrAMINE HCL 50 MG/ML VIAL IM ONE (12:18)
[2023-07-06] MEDS ORDERED: KETOROLAC TROMETHAMINE INJ 30 MG/ML VIAL ONE (12:36)
[2023-07-06] MEDS: KETOROLAC TROMETHAMINE INJ 60 MG/2 ML VIAL IM ONE (12:44)
== END 2023-07-06 13:14 | disposition home or self-care (01) ==
LOC: ER 10:38
DX: R21 Rash and other nonspecific skin eruption (principal); R51.9 Headache, unspecified; L29.9 Pruritus, unspecified; I10 Essential (primary) hypertension; F41.9 Anxiety disorder, unspecified; Z88.8 Allergy status to other drugs, medicaments and biological substances; Z79.899 Other long term (current) drug therapy
CPT/HCPCS: 99284; 96372 ×2; 85025; 80048; 36415; J1200; J1885

== ENCOUNTER 2023-10-29 08:34 | Emergency (ER) | payer BC, OTHER ==
[~2023-10-29] VITALS: Ht 162.6 cm; Wt 93.0 kg
[2023-10-29] MEDS ORDERED: BENZONATATE 100 MG CAPSULE PO ONE (09:09)
[2023-10-29] MEDS ORDERED: LORAZEPAM 0.5 MG TABLET ONE (09:09)
[2023-10-29] MEDS: LORAZEPAM 1 MG TABLET PO ONE (09:16)
[2023-10-29] MEDS: BENZONATATE 100 MG CAPSULE PO PRN (09:16)
[2023-10-29] MEDS ORDERED: BENZ-13 PO (09:23)
[2023-10-29] MEDS ORDERED: IBUP-1955 PO (09:23)
[2023-10-29] MEDS ORDERED: PAXLOVID PO (09:23)
[2023-10-29 09:47] VITALS: BP 128/65; TEMP 98.2; O2SAT 98
== END 2023-10-29 09:47 | disposition home or self-care (01) ==
LOC: ER 08:45
DX: J06.9 Acute upper respiratory infection, unspecified (principal); R05.9 Cough, unspecified; R09.81 Nasal congestion; Z20.822 Contact with and (suspected) exposure to COVID-19; G43.909 Migraine, unspecified, not intractable, without status migrainosus; I10 Essential (primary) hypertension; F41.9 Anxiety disorder, unspecified; F17.200 Nicotine dependence, unspecified, uncomplicated; Z98.890 Other specified postprocedural states; Z79.899 Other long term (current) drug therapy; Z88.1 Allergy status to other antibiotic agents; Z91.040 Latex allergy status